=== PATIENT | female | born 1950 | race Caucasian/White ===

== ENCOUNTER → 2017-01-31 | Outpatient (CLI) | payer MEDICAID ==
[~2017-01-31] MED LIST: AMAN100C7 PO; ASPI-621 PO; DEXA1TAB5 PO; DOCU100T3 PO; GLYB1TAB9 PO; GLYB5TAB3 PO; IBUPROFEN OTC PRN; INSU100I28 SQ-INSULIN; LEVE500T53 PO; LISI-167 PO; LISI-170 PO; METF10002 PO; METF500T PO; METO25TA35 PO; ONDA4TAB13 SL; ONDA8TAB9 PO; OXYC1TAB7 PO; PANT40TA3 PO; POLY17PO5 PO; SENN1TAB67 PO
== END | disposition home or self-care (01) ==
LOC: WOUND 12:51
PROVIDERS: ATTEND Internal Medicine Infectious Disease
DX: E11.622 Type 2 diabetes mellitus with other skin ulcer (principal); L97.311 Non-pressure chronic ulcer of right ankle limited to breakdown of skin; I10 Essential (primary) hypertension; M19.90 Unspecified osteoarthritis, unspecified site; Z86.73 Personal history of transient ischemic attack (TIA), and cerebral infarction without residual deficits
CPT/HCPCS: 99215

== ENCOUNTER → 2017-02-07 | Outpatient (CLI) | payer MEDICAID | END | disposition home or self-care (01) | LOC: WOUND 11:31 | PROVIDERS: ATTEND Internal Medicine | DX: E11.622 Type 2 diabetes mellitus with other skin ulcer (principal); L97.311 Non-pressure chronic ulcer of right ankle limited to breakdown of skin; I10 Essential (primary) hypertension; Z86.73 Personal history of transient ischemic attack (TIA), and cerebral infarction without residual deficits; M19.90 Unspecified osteoarthritis, unspecified site; Z87.891 Personal history of nicotine dependence | CPT/HCPCS: 97597 ==

== ENCOUNTER → 2017-02-21 | Outpatient (CLI) | payer MEDICAID ==
[~2017-02-21] MED LIST changes: +AMLO10TA2 PO; +GLYB1TAB13 PO; -GLYB1TAB9 PO; +INSU100V13 SQ-INSULIN; +TIZA4CAP PO
== END | disposition home or self-care (01) ==
LOC: WOUND 13:45
PROVIDERS: ATTEND Nurse Practitioner Family
DX: E11.622 Type 2 diabetes mellitus with other skin ulcer (principal); L97.311 Non-pressure chronic ulcer of right ankle limited to breakdown of skin; G40.309 Generalized idiopathic epilepsy and epileptic syndromes, not intractable, without status epilepticus; I10 Essential (primary) hypertension; M19.90 Unspecified osteoarthritis, unspecified site; Z90.710 Acquired absence of both cervix and uterus; Z86.718 Personal history of other venous thrombosis and embolism; Z86.73 Personal history of transient ischemic attack (TIA), and cerebral infarction without residual deficits; Z87.891 Personal history of nicotine dependence
CPT/HCPCS: 99214

== ENCOUNTER 2017-02-22 09:37 | Emergency (ER) | payer MEDICAID ==
[~2017-02-22] VITALS: Ht 170.2 cm; Wt 54.5 kg
[~2017-02-22 09:37] MED LIST changes: -AMLO10TA2 PO; -INSU100V13 SQ-INSULIN; -TIZA4CAP PO
[2017-02-22 09:40] VITALS: BP 123/77
[2017-02-22] MEDS ORDERED: INSU100V13 SQ-INSULIN (10:31)
[2017-02-22] MEDS ORDERED: AMLO10TA2 PO (10:32)
[2017-02-22] MEDS ORDERED: TIZA4CAP PO (10:33)
[2017-02-22 11:46] LABS: ASPARTATE AMINO TRANSFERASE 35 U/L (15-37); BLOOD UREA NITROGEN 19 mg/dL (7-18)
== END 2017-02-22 12:55 | disposition home or self-care (01) ==
LOC: ED 12:49
DX: L24.9 Irritant contact dermatitis, unspecified cause (principal); E87.6 Hypokalemia; R19.7 Diarrhea, unspecified; E11.9 Type 2 diabetes mellitus without complications; I10 Essential (primary) hypertension; Z87.440 Personal history of urinary (tract) infections; Z90.49 Acquired absence of other specified parts of digestive tract; Z90.710 Acquired absence of both cervix and uterus
CPT/HCPCS: 36415; 80053; 81003; 83605; 85025; 99284

== ENCOUNTER → 2017-03-14 | Outpatient (CLI) | payer MEDICAID ==
[~2017-03-14] MED LIST changes: +AMLO10TA2 PO; +INSU100V13 SQ-INSULIN; +TIZA4CAP PO
== END ==
LOC: WOUND 13:30
PROVIDERS: ATTEND Nurse Practitioner Family
DX: E11.622 Type 2 diabetes mellitus with other skin ulcer (principal); L97.311 Non-pressure chronic ulcer of right ankle limited to breakdown of skin; I10 Essential (primary) hypertension; M86.071 Acute hematogenous osteomyelitis, right ankle and foot; M19.90 Unspecified osteoarthritis, unspecified site; Z87.891 Personal history of nicotine dependence; Z90.710 Acquired absence of both cervix and uterus; Z86.73 Personal history of transient ischemic attack (TIA), and cerebral infarction without residual deficits
CPT/HCPCS: 97597; 99214

== ENCOUNTER → 2017-03-24 | Outpatient (CLI) | payer MEDICAID | END | disposition home or self-care (01) | LOC: WOUND 13:37 | PROVIDERS: ATTEND Internal Medicine | DX: E11.622 Type 2 diabetes mellitus with other skin ulcer (principal); I10 Essential (primary) hypertension; Z86.73 Personal history of transient ischemic attack (TIA), and cerebral infarction without residual deficits; M19.90 Unspecified osteoarthritis, unspecified site; Z87.891 Personal history of nicotine dependence | CPT/HCPCS: 99213 ==

== ENCOUNTER → 2017-03-28 | Outpatient (CLI) | payer MEDICAID | END | disposition home or self-care (01) | LOC: WOUND 13:30 | PROVIDERS: ATTEND Internal Medicine Infectious Disease | DX: E11.621 Type 2 diabetes mellitus with foot ulcer (principal); L97.311 Non-pressure chronic ulcer of right ankle limited to breakdown of skin; E11.69 Type 2 diabetes mellitus with other specified complication; M86.071 Acute hematogenous osteomyelitis, right ankle and foot; M19.90 Unspecified osteoarthritis, unspecified site; I10 Essential (primary) hypertension; Z86.73 Personal history of transient ischemic attack (TIA), and cerebral infarction without residual deficits; Z87.891 Personal history of nicotine dependence; Z90.710 Acquired absence of both cervix and uterus | CPT/HCPCS: 99213 ==

== ENCOUNTER → 2018-12-10 | Outpatient (CLI) | payer MEDICARE, MEDICAID ==
[~2018-12-10] MED LIST changes: -AMLO10TA2 PO; +AMLO10TA8 PO; -ASPI-621 PO; +ASPI81TA45 PO; +ATOR40TA78 PO; +B6 PO; +GABA-826 PO; +GLYB-137 PO; -GLYB1TAB13 PO; +HYDROCHLOROTH12.5 MG PO; +LEVE500T8 PO; +LISI40TA PO; +MULT-516 PO; +SITA100T PO; +WHEA1POW5 PO
[2018-12-10 14:25] LABS: ALBUMIN 3.7 g/dL (3.4-5.0); ANION GAP 6 mmol/L (5-15); CALCIUM 9.7 mg/dL (8.5-10.1); CHLORIDE 107 mmol/L (98-107)
[2018-12-10 14:29] LABS: ALANINE AMINOTRANSFERASE 109 U/L (12-78); ALKALINE PHOSPHATASE 101 U/L (45-117); BILIRUBIN,TOTAL 0.5 mg/dL (0.2-1.0); CREATININE 0.62 mg/dL (0.55-1.02); TOTAL PROTEIN 7.3 g/dL (6.4-8.2)
== END | disposition home or self-care (01) ==
LOC: STAR 12:57
PROVIDERS: ATTEND Obstetrics & Gynecology Female Pelvic Medicine and Reconstructive Surgery
DX: Z01.818 Encounter for other preprocedural examination (principal); N81.10 Cystocele, unspecified; N81.6 Rectocele; N39.3 Stress incontinence (female) (male); R10.2 Pelvic and perineal pain
CPT/HCPCS: 36415; 80053; 93005

== ENCOUNTER 2018-12-17 05:47 | Day surgery (SDC) | payer MEDICARE, MEDICAID ==
[~2018-12-17] VITALS: Ht 170.2 cm; Wt 64.8 kg
[2018-12-17] MEDS ORDERED: LACTATED RINGERS 1,000 ML IV SCH (06:18)
[2018-12-17 06:20] VITALS: BP 127/83
[2018-12-17] MEDS ORDERED: EPINEPHRINE 1 MG/ML, 1ML ONE (06:35)
[2018-12-17] MEDS ORDERED: NEOMY/POLYMYXIN B GU IRR. 1 ML ONE (06:35)
[2018-12-17] MEDS ORDERED: BUPIVACAINE/PF 0.25% ONE (06:35)
[2018-12-17] MEDS ORDERED: FENTANYL PF 100 MCG/2ML ONE (07:20)
[2018-12-17] MEDS ORDERED: MIDAZOLAM 1 MG/ML, 2ML ONE (07:20)
[2018-12-17] MEDS ORDERED: EPHEDRINE 50 MG/ML, 1ML ONE (07:23)
[2018-12-17] MEDS ORDERED: PROPOFOL 10 MG/ML, 20ML ONE (07:29)
[2018-12-17] MEDS ORDERED: ONDANSETRON 2MG/ML, 2ML ONE (07:29)
[2018-12-17] MEDS ORDERED: DEXAMETHASONE 4 MG/ML, 1ML ONE (07:29)
[2018-12-17] MEDS ORDERED: LIDOCAINE 2% 100MG/5ML SYRINGE ONE (07:29)
[2018-12-17] MEDS ORDERED: METOCLOPRAMIDE 5 MG/ML, 2ML ONE (07:29)
[2018-12-17] MEDS ORDERED: CEFAZOLIN 1,000 MG ONE (07:29)
[2018-12-17] MEDS ORDERED: MEPERIDINE/PF 25MG/0.5ML IVPush PRN (09:00)
[2018-12-17] MEDS ORDERED: ONDANSETRON 2MG/ML, 2ML IVPush PRN (09:00)
[2018-12-17] MEDS ORDERED: FENTANYL PF 100 MCG/2ML IV PRN (09:00)
[2018-12-17] MEDS ORDERED: LABETALOL 5MG/ML, 20ML IV PRN (09:00)
[2018-12-17] MEDS ORDERED: HYDROmorphone 1 MG/ML, 1ML IV PRN (09:00)
[2018-12-17] MEDS ORDERED: OXYcodone 5 MG/5 ML ORAL.SOL UDC PO PRN (09:00)
[2018-12-17] MEDS ORDERED: MIDAZOLAM 1 MG/ML, 2ML IV PRN (09:00)
[2018-12-17] MEDS ORDERED: OXYcodone/APAP 5/325MG TABLET PO PRN (10:00)
[2018-12-17] MEDS ORDERED: IBUPROFEN 600 MG TABLET PO PRN (10:00)
[2018-12-17] MEDS ORDERED: HYDROcodone/APAP 5/325 TABLET PO PRN (10:00)
[2018-12-17] MEDS ORDERED: KETOROLAC 30 MG/1 ML IVPush PRN ×2 (10:00→10:19)
[2018-12-17] MEDS ORDERED: HYDROmorphone 2 MG/ML, 1ML IVPush PRN (10:00)
[2018-12-17] MEDS ORDERED: KETOROLAC 30 MG/1 ML ONE (10:13)
== END 2018-12-17 12:25 | disposition home or self-care (01) ==
LOC: OUT 05:47
PROVIDERS: ATTEND Obstetrics & Gynecology Female Pelvic Medicine and Reconstructive Surgery
DX: N39.46 Mixed incontinence (principal); N81.10 Cystocele, unspecified; E11.9 Type 2 diabetes mellitus without complications; I10 Essential (primary) hypertension; K21.9 Gastro-esophageal reflux disease without esophagitis; F17.210 Nicotine dependence, cigarettes, uncomplicated; N32.81 Overactive bladder; Z90.49 Acquired absence of other specified parts of digestive tract; Z90.710 Acquired absence of both cervix and uterus; Z98.890 Other specified postprocedural states
CPT/HCPCS: 57265; 57282; 57288; 82962; C1771; J0171; J0690; J1100; J1885; J2250; J2405; J2704; J2765; J3010; J3490; J7120

== ENCOUNTER → 2019-04-08 | Outpatient (CLI) | payer MEDICARE, MEDICAID | END | disposition home or self-care (01) | LOC: CARD 13:09 | PROVIDERS: ATTEND Registered Nurse | DX: R25.1 Tremor, unspecified (principal) | CPT/HCPCS: 95819 ==

== ENCOUNTER 2020-12-30 23:22 | Inpatient (IN) | payer MEDICARE, MEDICAID ==
[~2020-12-30] VITALS: Ht 170.2 cm; Wt 67.0 kg
[~2020-12-30 23:22] MED LIST changes: +AMLO-211 PO; -AMLO10TA8 PO; -GLYB-137 PO; +GLYB1TAB18 PO; -LISI40TA PO; +LISI40TA9 PO
[2020-12-30] MEDS ORDERED: ONDANSETRON 2MG/ML, 2ML ONE (23:36)
[2020-12-30] MEDS ORDERED: ACETAMINOPHEN 500 MG TABLET ONE (23:37)
--- NOTE | 2020-12-30 23:40 | NUR ---
PT BIB POV FROM HOME BY DAUGHTER. DAUGHTER STATES PT HAD BLADDER SX ON MONDAY, WENT HOME C MARTIN WHICH DAUGHTER REMOVED THIS AM. @~2000 THIS EVENING PT C/O SHAKING & BEING COLD. DAUGHTER STATES SHE CHECKED PTS TEMP, AND AFEBRILE AT THE TIME. DAUGHTER BROUGHT PT IN FOR CONCERNS OF SEIZURE, BUT STATES PT WAS TALKING THROUGHOUT INSTANCES OF UNCONTROLLED SHAKING. PT ASSISTED OUT OF VEHILE BY ER STAFF. WHEELED TO ROOM 39, PLACED ON MONITOR & FEBRILE AT 40.2. CHANGED OUT OF CLOTHING (SATURATED BRIEF C BLOOD TINGED URINE REMOVED). MD AT BS FOR EVAL. PT WEAK BUT ABLE TO FOLLOW COMMANDS. PIV ESTB C B/C TO RUE. DAUGHTER STATES PARTIAL MASTECTOMY TO L SIDE IN 2018. BLADDER SCAN COMPLETED, AND MARTIN PLACED. DAUGHTER, MARTINA, REMAINS AT BS, CALL LIGHT IN REACH. WILL CTM. DENIES ANY NEEDS AT THIS TIME.
--- NOTE | 2020-12-30 23:44 | NUR ---
BLADDER SCAN: 640ML
--- NOTE | 2020-12-30 23:46 | NUR ---
PT PASSED SWALLOW EXAM, GIVEN TYL PO, TOLERATED WELL. SPEAKING C FAMILY. MD AT BS, PT & FAMILY AWARE OF PLAN FOR TESTING AND LIKELYHOOD OF ADMISSION.
--- NOTE | 2020-12-30 23:46 | NUR ---
PHLEB AT BS FOR 2ND SENT OF BC & LA.
[2020-12-31] MEDS ORDERED: ACETAMINOPHEN 500 MG TABLET PO ONE
[2020-12-31] MEDS ORDERED: ONDANSETRON 2MG/ML, 2ML IVPush ONE
[2020-12-31] MEDS ORDERED: SODIUM CHLORIDE FLUSH 10ML SYR IVF ONE
[2020-12-31 00:08] LABS: BASOPHILS % (AUTO) 0 % (0-1); EOSINOPHILS % (AUTO) 0 % (1-7); LYMPHOCYTES % (AUTO) 8 % (22-44); MEAN CORPUSCULAR HGB CONC 34.5 g/dL (32.4-35.8); MEAN PLATELET VOLUME 7.4 fL (7.4-10.4); MONOCYTES % (AUTO) 2 % (2-9); NEUTROPHILS % (AUTO) 90 % (42-75); PLATELET COUNT 220 x10^3/uL (130-400); RED BLOOD COUNT 3.42 x10^6/uL (3.82-5.3); RED CELL DISTRIBUTION WIDTH 13.4 % (9.6-15.2)
[2020-12-31 00:13] LABS: ALANINE AMINOTRANSFERASE 33 U/L (12-78); ALBUMIN 2.6 g/dL (3.4-5.0); ANION GAP 6 mmol/L (5-15); CALCIUM 8.5 mg/dL (8.5-10.1); CHLORIDE 103 mmol/L (98-107); CREATININE 0.75 mg/dL (0.55-1.02); MD NO
[2020-12-31 00:15] LABS: ALKALINE PHOSPHATASE 73 U/L (45-117); BILIRUBIN,TOTAL 0.6 mg/dL (0.2-1.0); TOTAL PROTEIN 6.6 g/dL (6.4-8.2)
[2020-12-31 00:53] LABS: MICROSCOPIC INDICATED
[2020-12-31] MEDS ORDERED: PIPERACILLIN/TAZO/PMX 3.375GM 50 ML ONE (01:22)
[2020-12-31] MEDS ORDERED: PIPERACILLIN/TAZO/PMX 3.375GM 50 ML IVPB ONE (01:30)
[2020-12-31] MEDS ORDERED: SODIUM CHLORIDE 0.9% 1,000ML IVBOLUS ONE ×2 (01:30)
[2020-12-31] MEDS ORDERED: VANCOMYCIN 1,200 MG in SODIUM CHLORIDE 0.9% 250 ML IV ONE (01:30)
[2020-12-31] MEDS ORDERED: VANCOMYCIN PER PHARMACY MC ONE (01:30)
--- NOTE | 2020-12-31 01:41 | NUR ---
TASK RN: PT HYPOTENSIVE, SECOND LITER NS STARTED, ALSO STARTED ABX. 2 SETS BC DRAWN AND IN LAB ALREADY
[2020-12-31] MEDS ORDERED: OMNIPAQUE 350 MG/ML, 100ML BOTTLE ONE (01:45)
[2020-12-31] MEDS ORDERED: LIDOCAINE-MPF 1%, 5ML ONE ×2 (02:13→02:14)
--- NOTE | 2020-12-31 02:23 | NUR ---
DR CASTRO AND PA AZAEL IN TO PLACE CENTRAL LINE A THIS TIME. NOREPI STARTED PERIPHERALLY UNTIL CENTRAL LINE PLACEMENT IS VARIFIED.
[2020-12-31] MEDS ORDERED: NOREPINEPHRINE 8 MG in SODIUM CHLORIDE 0.9% 242 ML IV PRN (02:30)
[2020-12-31] MEDS ORDERED: SODIUM CHLORIDE 0.9% 1,000 ML IV ONE (02:30)
[2020-12-31] MEDS ORDERED: CEFTRIAXONE PMX 1GM/50ML 50 ML IV ONE (02:30)
--- NOTE | 2020-12-31 03:07 | NUR ---
BREAK RN: PT RESTING ON MARISOL, NAD, APPEARS COMFORTABLE, EYES CLOSED, RESPIRATIONS EVEN AND UNLABORED, NC APPLIED WITH 2L O2 FLOW FOR O2 SAT OF 87% WHILE RESTING. PT NOW SATTING MID 90S. BED IN LOWEST, RAILS ENGAGED, CALL LIGHT ON LAP, FAMILY AT , [facility]. CENTRAL LINE PLACED, PT TOLERATED PROCEDURE WELL.
--- NOTE | 2020-12-31 03:33 | NUR ---
PER ESTRELLA ATKINS TO USE CENTRAL LINE.
--- NOTE | 2020-12-31 03:43 | NUR ---
DR ROBLES AT BEDSIDE
[2020-12-31] MEDS ORDERED: VITAMIN D3 (03:49)
[2020-12-31] MEDS ORDERED: DIVA250T PO (03:49)
[2020-12-31] MEDS ORDERED: CEFTRIAXONE PMX 1GM/50ML 50 ML ONE (04:08)
[2020-12-31] MEDS ORDERED: BISACODYL 10 MG SUPP PR PRN (04:30)
[2020-12-31] MEDS ORDERED: ONDANSETRON 2MG/ML, 2ML IVPush PRN (04:30)
[2020-12-31] MEDS ORDERED: VANCOMYCIN PER PHARMACY MC PRN (04:30)
[2020-12-31] MEDS ORDERED: PHARMACOKINETIC CONSULTATION MC ONE (05:00)
[2020-12-31] MEDS ORDERED: PHARMACOKINETIC MONITORING MC PRN (05:00)
[2020-12-31 05:12] LABS: FREE T4 (FREE THYROXINE) 1.68 ng/dL (0.76-1.46)
[2020-12-31] MEDS: PIPERACILLIN/TAZO/PMX 3.375GM 50 ML IV SCH ×4 (05:22→20:44)
[2020-12-31] MEDS: LACTATED RINGERS 1,000 ML IV SCH ×2 (05:42→12:17)
[2020-12-31] MEDS ORDERED: INSULIN LISPRO 100 UNITS/ML, PEN SQ-INSULIN SCH (07:00)
[2020-12-31] MEDS: SENNA/DOCUSATE TABLET PO SCH (09:19)
[2020-12-31] MEDS: ENOXAPARIN 40 MG/0.4 ML SQ SCH (09:19)
[2020-12-31] MEDS: GABAPENTIN 300 MG CAPSULE PO SCH ×2 (11:45→20:42)
[2020-12-31] MEDS: INSULIN LISPRO 100 UNITS/ML, PEN SQ-INSULIN SCH ×3 (11:47→20:45)
[2020-12-31] MEDS: ACETAMINOPHEN 325 MG TABLET PO PRN (12:17)
[2020-12-31 13:24] VITALS: BP 91/58
[2020-12-31] MEDS ORDERED: VANCOMYCIN 1,200 MG in SODIUM CHLORIDE 0.9% 250 ML IV SCH (20:00)
[2020-12-31 20:21] VITALS: BP 104/62
[2020-12-31] MEDS: ATORVASTATIN 40 MG TABLET PO SCH (20:42)
[2020-12-31] MEDS: DIVALPROEX 500 MG TAB.ER.24H PO SCH (20:44)
[2020-12-31] MEDS: POLYETHYLENE GLYCOL 17 GM PACKET PO PRN (22:48)
[2020-12-31 23:46] VITALS: BP 130/76
[2021-01-01] MEDS: PIPERACILLIN/TAZO/PMX 3.375GM 50 ML IV SCH ×4 (01:58→21:03)
[2021-01-01 05:26] LABS: BASOPHILS % (AUTO) 0 % (0-1); EOSINOPHILS % (AUTO) 0 % (1-7); LYMPHOCYTES % (AUTO) 12 % (22-44); MEAN CORPUSCULAR HGB CONC 34.8 g/dL (32.4-35.8); MEAN PLATELET VOLUME 7.3 fL (7.4-10.4); MONOCYTES % (AUTO) 5 % (2-9); NEUTROPHILS % (AUTO) 83 % (42-75); PLATELET COUNT 196 x10^3/uL (130-400); RED CELL DISTRIBUTION WIDTH 13.7 % (9.6-15.2)
[2021-01-01 05:28] LABS: MD NO
[2021-01-01 05:32] LABS: ANION GAP 4 mmol/L (5-15); CALCIUM 8.2 mg/dL (8.5-10.1); CHLORIDE 107 mmol/L (98-107); CREATININE 0.45 mg/dL (0.55-1.02)
[2021-01-01 07:34] VITALS: BP 137/76
[2021-01-01] MEDS: INSULIN LISPRO 100 UNITS/ML, PEN SQ-INSULIN SCH ×4 (09:26→21:19)
[2021-01-01] MEDS: SENNA/DOCUSATE TABLET PO SCH (09:27)
[2021-01-01] MEDS: GABAPENTIN 300 MG CAPSULE PO SCH ×2 (09:27→21:04)
[2021-01-01] MEDS: ENOXAPARIN 40 MG/0.4 ML SQ SCH (09:27)
[2021-01-01 12:14] VITALS: BP 106/66
[2021-01-01] MEDS: ACETAMINOPHEN 325 MG TABLET PO PRN (17:01)
[2021-01-01 20:04] VITALS: BP 151/81
[2021-01-01] MEDS ORDERED: INSULIN GLARGINE 100 UNITS/ML, PEN SQ-INSULIN SCH (21:00)
[2021-01-01] MEDS: DIVALPROEX 500 MG TAB.ER.24H PO SCH (21:04)
[2021-01-01] MEDS: ATORVASTATIN 40 MG TABLET PO SCH (21:04)
[2021-01-02 01:08] VITALS: BP 124/76
[2021-01-02] MEDS: PIPERACILLIN/TAZO/PMX 3.375GM 50 ML IV SCH ×4 (03:06→21:50)
[2021-01-02 07:56] VITALS: BP 165/80
[2021-01-02] MEDS: SENNA/DOCUSATE TABLET PO SCH (08:24)
[2021-01-02] MEDS: GABAPENTIN 300 MG CAPSULE PO SCH ×2 (08:24→21:49)
[2021-01-02] MEDS: ACETAMINOPHEN 325 MG TABLET PO PRN (08:24)
[2021-01-02] MEDS: INSULIN LISPRO 100 UNITS/ML, PEN SQ-INSULIN SCH ×4 (09:04→21:54)
[2021-01-02] MEDS: ENOXAPARIN 40 MG/0.4 ML SQ SCH (09:06)
[2021-01-02 12:19] VITALS: BP 147/78
[2021-01-02] MEDS: HYDROcodone/APAP 5/325 TABLET PO PRN (17:21)
[2021-01-02 19:25] VITALS: BP 145/86
[2021-01-02] MEDS: ATORVASTATIN 40 MG TABLET PO SCH (21:49)
[2021-01-02] MEDS: DIVALPROEX 500 MG TAB.ER.24H PO SCH (21:49)
[2021-01-02] MEDS: INSULIN GLARGINE 100 UNITS/ML, PEN SQ-INSULIN SCH (21:55)
[2021-01-03 04:17] VITALS: BP 169/82
[2021-01-03] MEDS: PIPERACILLIN/TAZO/PMX 3.375GM 50 ML IV SCH ×2 (04:23→10:44)
[2021-01-03 05:55] LABS: BASOPHILS % (AUTO) 0 % (0-1); EOSINOPHILS % (AUTO) 3 % (1-7); LYMPHOCYTES % (AUTO) 33 % (22-44); MEAN CORPUSCULAR HEMOGLOBIN 32.8 pg (27.0-34.8); MEAN CORPUSCULAR HGB CONC 34.7 g/dL (32.4-35.8); MEAN PLATELET VOLUME 7.3 fL (7.4-10.4); MONOCYTES % (AUTO) 10 % (2-9); NEUTROPHILS % (AUTO) 54 % (42-75); PLATELET COUNT 212 x10^3/uL (130-400); RED BLOOD COUNT 3.23 x10^6/uL (3.82-5.3); RED CELL DISTRIBUTION WIDTH 13.9 % (9.6-15.2)
[2021-01-03 06:01] LABS: MD NO
[2021-01-03 06:08] LABS: ANION GAP 7 mmol/L (5-15); CALCIUM 8.5 mg/dL (8.5-10.1); CHLORIDE 107 mmol/L (98-107)
[2021-01-03 06:09] LABS: CREATININE 0.44 mg/dL (0.55-1.02)
[2021-01-03] MEDS ORDERED: POTASSIUM CHLORIDE 20 MEQ TAB.ER.PRT PO ONE (07:00)
[2021-01-03 07:02] VITALS: BP 158/82
[2021-01-03] MEDS: INSULIN LISPRO 100 UNITS/ML, PEN SQ-INSULIN SCH ×4 (07:47→20:39)
[2021-01-03] MEDS: GABAPENTIN 300 MG CAPSULE PO SCH ×2 (08:45→20:38)
[2021-01-03] MEDS: LISINOPRIL 40 MG TABLET PO SCH (08:45)
[2021-01-03] MEDS: SENNA/DOCUSATE TABLET PO SCH (08:46)
[2021-01-03] MEDS: HYDROcodone/APAP 5/325 TABLET PO PRN ×2 (08:54→17:32)
[2021-01-03] MEDS: ENOXAPARIN 40 MG/0.4 ML SQ SCH (08:55)
[2021-01-03] MEDS: POLYETHYLENE GLYCOL 17 GM PACKET PO PRN (08:55)
[2021-01-03 12:12] VITALS: BP 160/89
[2021-01-03] MEDS: CEPHALEXIN 500 MG CAPSULE PO SCH ×2 (17:18→20:38)
[2021-01-03 19:40] VITALS: BP 163/80
[2021-01-03] MEDS: DIVALPROEX 500 MG TAB.ER.24H PO SCH (20:38)
[2021-01-03] MEDS: ATORVASTATIN 40 MG TABLET PO SCH (20:38)
[2021-01-03] MEDS: INSULIN GLARGINE 100 UNITS/ML, PEN SQ-INSULIN SCH (20:40)
[2021-01-04 02:30] VITALS: BP 168/55
[2021-01-04 04:23] LABS: ANION GAP 4 mmol/L (5-15); CALCIUM 8.4 mg/dL (8.5-10.1); CHLORIDE 108 mmol/L (98-107); CREATININE 0.35 mg/dL (0.55-1.02)
[2021-01-04 06:50] VITALS: BP 161/77
[2021-01-04] MEDS: INSULIN LISPRO 100 UNITS/ML, PEN SQ-INSULIN SCH ×3 (07:51→16:37)
[2021-01-04] MEDS: ENOXAPARIN 40 MG/0.4 ML SQ SCH (08:11)
[2021-01-04] MEDS: CEPHALEXIN 500 MG CAPSULE PO SCH ×2 (08:11→16:37)
[2021-01-04] MEDS: LISINOPRIL 40 MG TABLET PO SCH (08:11)
[2021-01-04] MEDS: HYDROcodone/APAP 5/325 TABLET PO PRN (08:11)
[2021-01-04] MEDS: GABAPENTIN 300 MG CAPSULE PO SCH (08:11)
[2021-01-04] MEDS: SENNA/DOCUSATE TABLET PO SCH (08:12)
[2021-01-04] MEDS ORDERED: SENN-211 PO (10:57)
[2021-01-04] MEDS ORDERED: CEPH-376 PO (10:57)
[2021-01-04] MEDS ORDERED: HYDR-1067 PO (10:57)
[2021-01-04 13:03] VITALS: BP 145/73
== END 2021-01-04 17:26 | disposition home or self-care (01) | DRG 871 ==
LOC: ED 23:52 → EDIP 12-31 03:24 → CCU 12-31 04:48 → 3N 12-31 12:15
PROVIDERS: ADMIT Family Medicine; ATTEND Family Medicine
PROC: 0T9B70Z Drainage of Bladder with Drainage Device, Via Natural or Artificial Opening (ICD-10-PCS; principal; 2020-12-31)
PROC: 02HV33Z Insertion of Infusion Device into Superior Vena Cava, Percutaneous Approach (ICD-10-PCS; 2020-12-31)
PROC: B548ZZA Ultrasonography of Superior Vena Cava, Guidance (ICD-10-PCS; 2020-12-31)
DX: A41.51 Sepsis due to Escherichia coli [E. coli] (principal); R65.21 Severe sepsis with septic shock; J96.90 Respiratory failure, unspecified, unspecified whether with hypoxia or hypercapnia; G93.41 Metabolic encephalopathy; E43 Unspecified severe protein-calorie malnutrition; N10 Acute pyelonephritis; Z88.8 Allergy status to other drugs, medicaments and biological substances; D64.9 Anemia, unspecified; E11.9 Type 2 diabetes mellitus without complications; G40.909 Epilepsy, unspecified, not intractable, without status epilepticus; I10 Essential (primary) hypertension; I69.398 Other sequelae of cerebral infarction; Z79.899 Other long term (current) drug therapy; Z85.3 Personal history of malignant neoplasm of breast; Z87.891 Personal history of nicotine dependence; Z90.10 Acquired absence of unspecified breast and nipple; Z90.49 Acquired absence of other specified parts of digestive tract; Z90.710 Acquired absence of both cervix and uterus; Z68.23 Body mass index [BMI] 23.0-23.9, adult
CPT/HCPCS: 36415; 51702; 71045; 74177; 80048; 80053; 80164; 81001; 82533; 82962; 83036; 83605; 84145; 84439; 84443; 84481; 85025; 87040; 87077; 87081; 87086; 87186; 93005; 96361; 96365; 96375; 99291; G0378; J0696; J1650; J2405; J2543; J3370; Q9967; J1815; J7030; J7050; J7120